=== PATIENT | male | born 1970 | race Caucasian/White ===

== ENCOUNTER 2021-11-20 09:15 | Outpatient (CLI) | payer MEDICARE, SELFPAY | END 2021-11-20 09:16 | disposition home or self-care (01) | LOC: RAD 09:22 | PROVIDERS: PCP Family Medicine; Visit Provider Psychiatry & Neurology Neurology | DX: I63.9 Cerebral infarction, unspecified (principal); I34.0 Nonrheumatic mitral (valve) insufficiency | CPT/HCPCS: 93306; 96374; Q9957 ==